=== PATIENT | male | born 1980 | race Caucasian/White ===

== ENCOUNTER 2024-12-06 10:41 | Outpatient (CLI) | payer BC, SELFPAY ==
--- NOTE | ~2024-12-06 | XR_ITS ---
CHEST RADIOGRAPH, PA AND LATERAL CLINICAL HISTORY: EXPOSURE TO MOLD 2 months ago, previous smoker . COMPARISON: None available TECHNIQUE: PA and lateral views of the chest. FINDINGS The cardiomediastinal silhouette is unremarkable. The lungs are clear. IMPRESSION: No focal infiltrate or effusion. Reviewed, dictated and finalized at location A.
== END 2024-12-06 10:42 | disposition home or self-care (01) ==
LOC: GOSHIMG 10:42
PROVIDERS: PCP Physician Assistant; Visit Provider Physician Assistant
DX: Z77.120 Contact with and (suspected) exposure to mold (toxic) (principal)
CPT/HCPCS: 71046

== ENCOUNTER 2024-12-22 08:42 | Observation (INO) | payer SELFPAY ==
--- NOTE | ~2024-12-22 | US_ITS ---
EXAMINATION: US scrotum doppler, 12/22/2024 9:10 CDT HISTORY: left testicle swelling Comparison: None Technique: Leon-scale and color Doppler images were obtained of the testes with spectral analysis to document arterial and venous flow. Findings: Right Testicle:Right testicle 4.6 x 2.1 x 2.8 cm, normal parenchyma, normal flow. Right Epidiymis:Unremarkable. Normal flow. Left Testicle: Increased flow noted to the left testicle is otherwise normal parenchyma. Left testicle measures 4.6 x 3.4 x 3.2 cm. Left Epidiymis: The left epididymis is enlarged with increased flow. Hydrocele: Small simple appearing hydrocele. Moderate simple-appearing left hydrocele. . Varicocele: None Scrotum: Unremarkable. No skin thickening. Impression: Left-sided epididymoorchitis Reviewed, dictated and finalized at location A. Impression: Left-sided epididymoorchitis
--- NOTE | ~2024-12-22 | CT_ITS ---
EXAMINATION: CT abdomen pelvis wo miles, 12/22/2024 9:20 CDT HISTORY: flank pain COMPARISON: No comparisons available. TECHNIQUE: CT scan of the abdomen and pelvis was performed without IV contrast. One or more of the following dose reduction techniques were used: automated exposure control, adjustment of the mA and/or kV according to patient size, use of iterative reconstruction technique. Unless otherwise stated, incidental findings do not require dedicated follow up imaging FINDINGS: CT abdomen: LUNG BASES: The lung bases are clear. The visualized portions of the heart and pericardium are unremarkable. LIVER: Severe hepatic steatosis. SPLEEN: Unremarkable, no splenomegaly. KIDNEYS: Right Kidney: Unremarkable. No calculi. No hydronephrosis. Left Kidney: Unremarkable. No calculi. No hydronephrosis ADRENAL GLANDS: Unremarkable. PANCREAS: No enlarged lymph nodes in the peripancreatic space the largest 2 x 1.5 cm. GALLBLADDER/BILIARY: Gallbladder not identified. STOMACH AND ESOPHAGUS: Visualized stomach and esophagus within normal limits. BOWEL/MESENTERY: Moderate fecal content. No colitis or diverticulitis. Appendix normal. Mesentery normal. No dilated small bowel loops. ADENOPATHY/RETROPERITONEUM: No lymphadenopathy. AORTA/VASCULATURE: Normal caliber aorta. FREE FLUID OR FREE AIR: No free fluid.. CT pelvis: SOLID ORGANS/REPRODUCTIVE: Unremarkable. BLADDER: Within normal limits. OSSEOUS STRUCTURES: No acute osseous abnormality.No suspicious lesions. OVERLYING SOFT TISSUES: Unremarkable. IMPRESSION: 1. No etiology identified to explain the patient's symptoms. Follow-up suggested if symptoms persist. Reviewed, dictated and finalized at location A. IMPRESSION: 1. No etiology identified to explain the patient's symptoms. Follow-up suggeste d if symptoms persist.
[2024-12-22 08:44] VITALS: BP 161/114; PULSE 92; RESP 20; TEMP 36.6; O2SAT 97
--- OUTSIDE RECORDS SUMMARY | 2024-12-22 08:44 | XMS_ITS | Clinical Summary ---
Author Organization [facility] Address [address] [place] [address] Care Team Providers Care Doormaker Name Role Phone Lacey Woodward MD Primary Care Provider [phone] [facility],non-owned Affiliates and Associated Physician Practices is amultiple site organization consisting of ambulatory clinics and hospital sitesin [place], [place], [place] and [place]. This disclosure is being madepursuant to the Care Everywhere program and may not contain all information available regarding this patient. Last updated 18.[facility] Allergies Active Allergy Reactions Criticality Noted Date Comments Penicillins 05/22/2011 Medications * Be aware that medications may not be up to date on this document. Alwaysverify current medications with the patient. oxyCODONE CR 12hr (OXYCONTIN) 10 MG tablet Take 10 mg by mouth every 12 hours. Active cyclobenzaprine (FLEXERIL) 10 MG tablet Take 10 mg by mouth 3 times daily as needed. Active diazepam (VALIUM) 5 MG tablet Take 5 mg by mouth 3 times daily as needed. Active hydrocodone-acet aminophen (NORCO) 5-325 MG tablet Take 1 Tab by mouth every 4 hours as needed for Pain. 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 Gender Identity Not on file Sexual Orientation Not on file Last Filed Vital Signs Vital Sign Reading Time Taken Comments Blood Pressure 103/55 05/22/2011 9:46 PM FISHER SCALLOP Pulse 66 05/22/2011 9:45 PM FISHER SCALLOP Temperature 36.8 C (98.3 F) 05/22/2011 9:45 PM FISHER SCALLOP Respiratory Rate 15 05/22/2011 9:45 PM FISHER SCALLOP Oxygen Saturation 98% 05/22/2011 9:47 PM FISHER SCALLOP Inhaled Oxygen Concentration - - Weight 108.9 kg (240 lb) 05/22/2011 7:55 PM FISHER SCALLOP Height 195.6 cm (6' 5) 05/22/2011 7:55 PM FISHER SCALLOP Body Mass Index 28.46 05/22/2011 7:55 PM FISHER SCALLOP Plan of Treatment Health Maintenance Due Date Last Done Comments LIPID TESTING 1980 HIV SCREENING 08/28/1995 HEPATITIS C SCREENING 08/23/1998 DTAP/TDAP/TD VACCINES (1 - Tdap) 08/28/1999 HEPATITIS B VACCINE (1 of 3 - 19+ 3-dose series) 08/28/1999 HPV VACCINE (1 - 3-dose SCDM series) 08/28/2007 COVID-19 VACCINE (1 - 2023-2 5 season) 2023 DEPRESSION SCREENING 04/25/2024 INFLUENZA VACCINE (#1) 2024 ZOSTER VACCINE (1 of 2) 2030 HIB VACCINE Aged Out No longer eligi ble based on patient's age to complete this topic MENINGOCOCCAL (Group B) VACC INE SHARED DECISION-MAKING Aged Out No longer eligibl e based on patient's age to complete this topic MENINGOCOCCAL GROUPS A/C/Y/W VACCINE Aged Out No longer eligible b ased on patient's age to complete this topic PNEUMOCOCCAL VACCINE Aged Out No long er eligible based on patient's age to complete this topic Care Teams Doormaker Relationship Specialty Start Date End Date Lacey Woodward MD [address] [place] [id number] PCP - General 05/22/11
--- OUTSIDE RECORDS SUMMARY | 2024-12-22 08:44 | XMS_ITS | Encounter Summary ---
Author Organization [facility] Address [address] [place] [address] Care Team Providers Care Oil Well Gun Perforator Operator Name Role Phone Eleazar Trotter MD Primary Care Provider [phone] Encounter Details Date Type Department Care Team (Late st Contact Info) Description 12/02/2024 Results Follow-Up 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
--- NOTE | 2024-12-22 08:51 | ED_ITS ---
HPI - General Adult General Chief complaint: Urogenital-Male Stated complaint: URO-MALE Time Seen by Provider: 12/22/24 08:43 History of Present Illness HPI narrative: [age] old male presenting to the emergency department for evaluation for left testicular swelling that he states has been ongoing for the past 2 weeks. Patient states he did have follow-up with [facility] and was started on an antibiotic but ultimately was told to stop the antibiotic because this was not a urinary tract infection. Patient reports while he was on the antibiotic he felt that his symptoms were improving. Patient reports that acutely last night he had worsening left testicular pain and does still have bilateral flank pain. Patient denies any prior history of discolored torsion, testicular surgeries or kidney stones. Patient does report some pain with urination. Patient is tearful upon arrival to the emergency department. Related Data Allergies Allergy/AdvReac Type Severity Reaction Status Date / Time Penicillins Allergy Unknown Verified 12/22/24 15:01 Review of Systems 2 Review of Systems: All systems reviewed & are unremarkable except as noted in HPI and below PMFSH Social History Social History (System 11/22/19 @ 09:13 by Yenny Rainey) Smoking status: Current every day smoker Tobacco type: cigarettes Second hand tobacco smoke exposure: Yes Alcohol intake: never Substance use: current Substance use type: marijuana Lack of Transportation: No Lack of Food: Never True Current Housing: I Have Housing Concerned About Future Housing: No Difficulty Paying Gas/Electric Bills: No Difficulty Paying for Meds: No Currently Unemployed: No Education: Associate Degree Difficulty w/ Childcare or Family Care: No Spiritual care concerns: No Exam 2 Narrative: APPEARANCE: Tearful affect HEAD: normocephalic, atraumatic. EYES: PERRLA/EOMI, conjunctivae clear. NOSE: Normal no drainage EARS:TMS clear with good light reflex. THROAT: Pharynx clear, no exudate. NECK: Supple. No adenopathy, no masses. RESPIRATORY: Airway patent, respirations nonlabored. Clear to auscultation bilaterally, no rales, rhonchi, wheezing. CARDIOVASCULAR: Regular rate and rhythm without murmurs rubs or gallops. ABDOMINAL: Bilateral CVA tenderness to palpation MUSCULOSKELETAL: Moves all extremities. Strength/ROM intact, No edema, No calf tenderness. NEURO: Alert. Cranial nerves II through XII intact. Grossly intact SKIN: Warm, dry. Normal Color Genital exam: Left testicular swelling with no tenderness to right testicle and mild tenderness to left testicle, left testicle as not high riding Course Vital Signs Vital signs: Vital Signs Temperature 97.8 F 12/22/24 08:44 Pulse Rate 92 12/22/24 08:44 Respiratory Rate 20 12/22/24 08:44 Blood Pressure 161/114 H 12/22/24 08:44 Pulse Oximetry 97 12/22/24 08:44 Oxygen Delivery Room Air 12/22/24 08:44 Temperature 97.4 F L 12/22/24 14:30 Pulse Rate 77 12/22/24 14:30 Respiratory Rate 18 12/22/24 14:30 Blood Pressure 135/81 12/22/24 14:30 Pulse Oximetry 98 12/22/24 14:30 Oxygen Delivery Room Air 12/22/24 15:11 Medical Decision Making MDM Narrative Medical decision making narrative: 44-year-old male present to the emergency department for evaluation for left flank pain and left testicular pain and swelling. Patient is afebrile but does have a leukocytosis of 29.4 hemoglobin of 15.1. No significant acute abnormalities on the patient's CMP and UA was positive for leukocyte esterase with 3-5 red cells and 6-10 white blood cells. Ultrasound does show evidence epididymo-orchitis but CT scan showed no acute findings. Patient was negative for gonorrhea and chlamydia. Patient was treated with a dose of IM Rocephin and attempted to treat the patient with doxycycline but he did not tolerate the doxy IV so he was switched to Levaquin. Urology was consulted and was okay with the plan to continue the Levaquin. Patient was updated the results of the workup plan for admission. All questions are addressed. Case was accepted by the hospitalist. Patient was well-appearing at time of admission. Differential Diagnosis Differential Diagnosis: Kidney stone, ureteral calculi, urinary tract infection, gonorrhea, chlamydia, testicular torsion, epididymitis, epididymal orchitis Vital Signs Vital Signs: Vital Signs Temperature 97.8 F 12/22/24 08:44 Pulse Rate 92 12/22/24 08:44 Respiratory Rate 20 12/22/24 08:44 Blood Pressure 161/114 H 12/22/24 08:44 Pulse Oximetry 97 12/22/24 08:44 Oxygen Delivery Room Air 12/22/24 08:44 Temperature 97.4 F L 12/22/24 14:30 Pulse Rate 77 12/22/24 14:30 Respiratory Rate 18 12/22/24 14:30 Blood Pressure 135/81 12/22/24 14:30 Pulse Oximetry 98 12/22/24 14:30 Oxygen Delivery Room Air 12/22/24 15:11 Lab Data Lab results reviewed: Yes I reviewed the patient's lab results. 12/22/24 09:06 12/22/24 09:06 Labs: Lab Results 12/22/24 Range/Units 09:06 WBC 29.4 H (4.5-10.0) K/mm3 RBC 4.96 (4.6-6.20) M/mm3 Hgb 15.1 (14.0-18.0) g/dL Hct 45.2 (42.0-52.0) % MCV 91.1 (80-100) fl MCH 30.4 (26-34) pg MCHC 33.4 (32-36) g/dl RDW 12.7 (11.5-14.5) % Plt Count 231 (150-375) k/mm3 MPV 9.7 (7.4-10.4) fl Immature Gran % (Auto) Not Reportable Neut % (Auto) Not Reportable Lymph % (Auto) Not Reportable [place] % (Auto) Not Reportable Eos % (Auto) Not Reportable Baso % (Auto) Not Reportable Lymph # (Auto) Not Reportable [place] # (Auto) Not Reportable Eos # (Auto) Not Reportable Baso # (Auto) Not Reportable Abs Immat Gran (auto) Not Reportable Absolute Neuts (auto) Not Reportable Absolute Nucleated RBC Not Reportable Total Counted 100 Neutrophils % (Manual) 82 H (46-73) % Band Neutrophils % 3 (0-6) % Lymphocytes % (Manual) 6.0 L (18-44) % Monocytes % (Manual) 8 (3-9) % Eosinophils % (Manual) 1 (0-4) % Nucleated RBC % Not Reportable Abs Neuts (Manual) 24.99 H (1.3-6.7) K/mm3 Abs Lymphs (Manual) 1.76 (1.1-4.5) K/mm3 Abs Monocytes (Manual) 2.35 H (0.1-0.90) K/mm3 Absolute Eos (Manual) 0.29 (0.02-0.50) K/mm3 Platelet Estimate Adequate (Adequate) Schistocytes None seen Sodium 135 L (137-145) mmol/L Potassium 4.0 (3.4-5.0) mmol/L Chloride 101 (98-107) mmol/L Carbon Dioxide 26 (22-30) mmol/L Anion Gap 8 (4-12) mmol/L BUN 12 (9-20) mg/dL Creatinine 0.77 (0.7-1.3) mg/dL Estim Creat Clear Calc 169 ml/min Estimated GFR > 60 (59 - ) Glucose 150 H (65-110) mg/dL Calcium 9.3 (8.4-10.2) mg/dL Total Bilirubin 1.0 (0.2-1.3) mg/dL AST 42 (17-59) U/L ALT 37 (6-50) U/L Alkaline Phosphatase 95 (38-126) U/L Total Protein 7.1 (6.3-8.2) g/dL Albumin 4.1 (3.5-5.1) g/dL Urine Color Yellow (Yellow) Urine Appearance Cloudy H (Clear) Urine pH 6.0 (5.0-9.0) Ur Specific [place] 1.018 (1.001-1.035) Urine Protein Trace (Negative) mg/dL Urine Glucose (UA) Negative (Negative) mg/dL Urine Ketones Negative (Negative) mg/dL Ur Blood (Man) Negative (Negative) Urine Nitrate Negative (Negative) Urine Bilirubin Negative (Negative) Urine Urobilinogen 1.0 (<2.0) mg/dL Leukocyte Esterase Rfl 1+ H (Negative) FLORA/UL Urine RBC 3-5 H (0-2) /hpf Urine WBC 6-10 H (0-3) /hpf Ur Squamous Epith Cells Occasional (Few) /hpf Urine Bacteria None seen /hpf Urine Casts 0-2 C. trachomatis (PCR) Not detected (NOT DETECTE) N. gonorrhoeae (PCR) Not detected (NOT DETECTE) Imaging Data Radiologist's impression: Impressions Scrotum Ultrasound 12/22/24 11:38 Impression: Left-sided epididymoorchitis Abdomen/Pelvis CT 12/22/24 12:10 IMPRESSION: 1. No etiology identified to explain the patient's symptoms. Follow-up suggested if symptoms persist. Discharge Plan Discharge Clinical Impression: Epididymo-orchitis Patient Disposition: Still a Patient Condition: Stable
[2024-12-22 09:11] LABS: Hematocrit 45.2 % (42.0-52.0); Hemoglobin 15.1 g/dL (14.0-18.0); Mean Corpuscular HGB Conc 33.4 g/dl (32-36); Mean Corpuscular Hemoglobin 30.4 pg (26-34); Mean Corpuscular Volume 91.1 fl (80-100); Platelet Count Result 231 k/mm3 (150-375); Red Blood Count 4.96 M/mm3 (4.6-6.20); White Blood Count 29.4 K/mm3 (4.5-10.0)
[2024-12-22] MEDS: LACTATED RINGERS 1,000 ML 999 ML IV CONT (09:13)
--- OUTSIDE RECORDS SUMMARY | 2024-12-22 09:14 | XMS_ITS | Encounter Summary ---
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
--- OUTSIDE RECORDS SUMMARY | 2024-12-22 09:14 | XMS_ITS | Clinical Summary ---
Author Organization [facility] Address [address] [place] [address] Care Team Providers Care Vibration Analyst Name Role Phone Lacey Woodward MD Primary Care Provider [phone] Source Comments [facility],non-owned Affiliates and Associated Physician Practices is amultiple site organization consisting of ambulatory clinics and hospital sitesin [place], [place], [place] and [place]. This disclosure is being madepursuant to the Care Everywhere program and may not contain all information available regarding this patient. 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 Gender Identity Not on file Sexual Orientation Not on file Last Filed Vital Signs Vital Sign Reading Time Taken Comments Blood Pressure 103/55 05/22/2011 9:46 PM SHEET METAL ASSEMBLER Pulse 66 05/22/2011 9:45 PM SHEET METAL ASSEMBLER Temperature 36.8 C (98.3 F) 05/22/2011 9:45 PM SHEET METAL ASSEMBLER Respiratory Rate 15 05/22/2011 9:45 PM SHEET METAL ASSEMBLER Oxygen Saturation 98% 05/22/2011 9:47 PM SHEET METAL ASSEMBLER Inhaled Oxygen Concentration - - Weight 108.9 kg (240 lb) 05/22/2011 7:55 PM SHEET METAL ASSEMBLER Height 195.6 cm (6' 5) 05/22/2011 7:55 PM SHEET METAL ASSEMBLER Body Mass Index 28.46 05/22/2011 7:55 PM SHEET METAL ASSEMBLER Plan of Treatment Health Maintenance Due Date [...] age to complete this topic Care Teams Vibration Analyst Relationship Specialty Start Date End Date Lacey Woodward MD [address] [place] [phone] PCP - General 05/22/11
[2024-12-22 09:15] LABS: Add Urine Microscopic? YES; Appearance Urine Cloudy (Clear); Glucose Urine UA Negative (Negative); Leukocyte Esterase Ur 1+ LEU/UL (Negative); Nitrate Urine Negative (Negative); Non Pathogenic Casts 0-2; Specific Grav Ur 1.018 (1.001-1.035)
[2024-12-22] MEDS: HYDROcodone/acetaminophen (*CRX) 7.5-325 MG TABLET 1 TAB PO (09:16)
--- NOTE | 2024-12-22 09:23 | PC.NURSE ---
called lab to add on GCCHLAMPCR to urine sent down.
[2024-12-22 09:34] LABS: Alanine Aminotransferase 37 U/L (6-50); Albumin Level 4.1 g/dL (3.5-5.1); Alkaline Phosphatase 95 U/L (38-126); Anion Gap 8 mmol/L (4-12); Aspartate Amino Transferase 42 U/L (17-59); Bilirubin,Total 1.0 mg/dL (0.2-1.3); Blood Urea Nitrogen 12 mg/dL (9-20); Calcium 9.3 mg/dL (8.4-10.2); Carbon Dioxide 26 mmol/L (22-30); Chloride 101 mmol/L (98-107); Estimated CRCL calculation 169 ml/min; Estimated Glomerular Filt Rate > 60; Glucose 150 mg/dL (65-110); Potassium 4.0 mmol/L (3.4-5.0); Sodium 135 mmol/L (137-145); Total Protein 7.1 g/dL (6.3-8.2)
[2024-12-22 09:36] LABS: Band Neutrophils Percent 3 % (0-6); Eosinophils Absolute Manual 0.29 K/mm3 (0.02-0.50); Eosinophils Percent Manual 1 % (0-4); Lymphocytes Absolute Manual 1.76 K/mm3 (1.1-4.5); Lymphocytes Percent Manual 6.0 % (18-44); Monocytes Absolute Manual 2.35 K/mm3 (0.1-0.90); Monocytes Percent Manual 8 % (3-9); Neutrophils Absolute Manual 24.99 K/mm3 (1.3-6.7); Neutrophils Percent Manual 82 % (46-73); Schistocytes None Seen; Total Cells Counted 100
[2024-12-22 10:21] VITALS: BP 132/86; PULSE 75; RESP 20; O2SAT 98
[2024-12-22] MEDS: cefTRIAXone 1 GM VIAL 0.5 GM IM (12:15)
[2024-12-22] MEDS: DOXYCYCLINE IV 100 MG in SODIUM CHLORIDE 0.9% IV 100 ML IVPB (12:16)
[2024-12-22] MEDS: LIDOCAINE 1% LOCAL INJ 10 ML VIAL (12:17)
--- NOTE | 2024-12-22 12:36 | PC.NURSE ---
Pt c/o pain to IV site with doxycycline IV administration. MD made aware. Order discontinued and IV stopped.
[2024-12-22] MEDS: levoFLOXacin 750 MG/D5W 150 ML 750 MG/150 ML BAG 100 MG IVPB (12:52)
[2024-12-22 14:27] VITALS: BMI 38.6
[2024-12-22 14:30] VITALS: BP 135/81; PULSE 77; RESP 18; TEMP 36.3; O2SAT 98
[2024-12-22] MEDS: HYDROcodone/acetaminophen (*CRX) 5-325 MG TABLET 1 TAB PO (14:42)
[2024-12-22] MEDS: ONDANSETRON INJ 4 MG/2 ML VIAL IV PUSH (14:42)
[2024-12-22] MEDS: NICOTINE (*PBKC) 21 MG PATCH 1 PATCH TRANSDERM (14:42)
[2024-12-22] MEDS: SODIUM CHLORIDE 0.9% IV 1,000 ML 100 ML IV CONT (14:43)
--- NOTE | 2024-12-22 15:11 | ADMGEN ---
This patient, Jonathan Stoner, was admitted to [facility] Surg Room 313-01. Patient/family oriented to hospital policies and general routines including ID bracelet, bed and alarms, visiting hours, pain management, procedures, bathroom and other care routines, personal items, smoking policy, room service/diet, and visiting hours. Information on how to activate the Rapid Response Team has been discussed. Patient/Family are encouraged to report perceived risks to care and to ask questions if they do not understand what they are told or what they should do. received report from gloria.
--- NOTE | 2024-12-22 15:37 | P.HP_ITS ---
H&P: HPI History of Present Illness Date/Time: 12/22/24 15:37 Chief Complaint: Scrotal Pain Narrative: 44 Year old male presents the hospital with scrotal pain. Patient has been complaining about this for the last 2 weeks. He was seen at [facility] and was treated for a urinary tract infection with antibiotics however he was told he could stop taking antibiotics causes culture was negative. He states that while he was on antibiotics he felt that his symptoms improved. However last night he had acute left testicular pain with some flank pain. Due to the pain patient presented back to the emergency room. Lab work in the ED shows leukocytosis at 29.4, sodium of 135, glucose of 150, UA is cloudy with 1+ leukocyte esterase 3-5 rbc's and 6-10 wbc's. Trichomonas and gonorrhea were negative. Scrotal ultrasound show Left-sided epididymoorchitis. CT of abdomen pelvis shows no acute findings however there is Severe hepatic steatosis. Urology was consulted and recommended inpatient IV antibiotics. Review of Systems Review of Systems: 12 systems were reviewed and are negativ e except for as per HPI. [facility] Social History Social History (System 11/22/19 @ 09:13 by Yenny Rainey) Smoking status: Current every day smoker Tobacco type: cigarettes Second hand tobacco smoke exposure: Yes Alcohol intake: never Substance use: current Substance use type: marijuana Lack of Transportation: No Lack of Food: Never True Current Housing: I Have Housing Concerned About Future Housing: No Difficulty Paying Gas/Electric Bills: No Difficulty Paying for Meds: No Currently Unemployed: No Education: Associate Degree Difficulty w/ Childcare or Family Care: No Spiritual care concerns: No Meds Home Medications and Allergies Home Medications ?Medication ?Instructions ?Recorded ?Confirmed ?Type losartan 50 mg tablet 50 mg PO QAM 12/22/24 History Allergies Allergy/AdvReac Type Severity Reaction Status Date / Time Penicillins Allergy Unknown Verified 12/22/24 15:01 Vital Signs Vital Signs - 24 hr 12/22/24 08:44 12/22/24 10:21 12/22/24 14:30 Temperature 97.8 F 97.4 F L Pulse Rate 92 75 77 Respiratory Rate 20 20 18 Blood Pressure 161/114 H 132/86 135/81 Pulse Oximetry 97 98 98 Oxygen Delivery Room Air 12/22/24 15:11 Temperature Pulse Rate Respiratory Rate Blood Pressure Pulse Oximetry Oxygen Delivery Room Air Exam Narrative: General: well appearing, appears stated age. HEENT: normocephalic, atraumatic. Mucous membranes moist. EOMI, PERRLA, bilateral sclera anicteric, no conjunctival injection. Neck supple without JVD, lymphadenopathy, or bruit. Respiratory: clear to ascultation bilaterally. No rales/rhonic/wheezes. Cardiovascular: Regular rate and rhythm, normal S1-S2 upon ascultation. No murmurs, rubs, or clicks. PMI is nondisplaced, capillary refill less than 3 second. Abdomen: Soft, round, no pulsatile masses, nondistended and nontender. No rebound, no guarding. No CVA tenderness, no hepatosplenomegaly. Bowel sounds present to all four quadrants. No high pitch or tinkling sounds, resonant to percussion. Extremities: No cyanosis, clubbing, or edema present. Pulses are palpable 2/2. Active ROM to all four extremities. Neuro: Alert and orientated x 4. PERRLA. Cranial nerves 2-12 intact without focal deficit. Skin: Warm, dry, and intact, without rash, erythema, or lesion. Psych: pleasant, cooperative, normal speech, normal affect, no hallucinations, no dysarthia H&P: Results Labs Labs: Short CBC 12/22/24 Range/Units 09:06 WBC 29.4 H (4.5-10.0) K/mm3 Hgb 15.1 (14.0-18.0) g/dL Hct 45.2 (42.0-52.0) % Plt Count 231 (150-375) k/mm3 BMP 12/22/24 09:06 Sodium 135 L Potassium 4.0 Chloride 101 Carbon Dioxide 26 BUN 12 Creatinine 0.77 Glucose 150 H Calcium 9.3 Liver Function 12/22/24 Range/Units 09:06 Total Bilirubin 1.0 (0.2-1.3) mg/dL AST 42 (17-59) U/L ALT 37 (6-50) U/L Alkaline Phosphatase 95 (38-126) U/L Albumin 4.1 (3.5-5.1) g/dL Urine 12/22/24 Range/Units 09:06 Urine Color Yellow (Yellow) Urine Appearance Cloudy H (Clear) Urine pH 6.0 (5.0-9.0) Ur Specific [place] 1.018 (1.001-1.035) Urine Protein Trace (Negative) mg/dL Urine Glucose (UA) Negative (Negative) mg/dL Assessment and Plan Assessment and plan (1) Epididymo-orchitis: Code(s): N45.3 - Epididymo-orchitis Status: Acute Assessment and Plan: Urology consulted Urinary culture pending IV levofloxacin IVF Dilaudid and Toradol for pain control (2) Hyperglycemia: Code(s): R73.9 - Hyperglycemia, unspecified Status: Acute Assessment and Plan: A1c 6.3 Diabetic diet SSI environmental educator (3) Hepatic steatosis: Code(s): K76.0 - Fatty (change of) liver, not elsewhere classified Status: Acute Assessment and Plan: Liver enzymes within normal limits Patient is aware of this fatty liver and quit drinking about 9 years ago Quality VTE Prophylaxis VTE prophylaxis: mechanical ordered If No VTE Prophylaxis Answer both mechanical and pharmacologic: Reason no pharmacologic proph: low risk/not indicated Hospitalist MIPS Advance Care Plan I have confirmed that the patient's Advanced Care Plan is present, code status is documented, or surrogate decision maker is listed in patient medical record.: Yes Medication Reconciliation I have utilized all available resources to obtain, update and review the patients current medications (includes all prescriptions, OTC, herbals, cannabis, and nutritional supplements).: Yes
[2024-12-22] MEDS: HYDROmorphone HCL INJ (*CRX) 1 MG/ML SYR 0.5 MG IV PUSH (16:00)
[2024-12-22] MEDS: DOCUSATE SODIUM 100 MG CAPSULE PO (17:15)
[2024-12-22] MEDS: HYDROmorphone HCL INJ (*CRX) 1 MG/ML SYR IV PUSH ×3 (17:38→23:21)
[2024-12-22] MEDS: KETOROLAC 15 MG/ML VIAL (*BKC) IV PUSH ×2 (17:39→23:21)
[2024-12-22 19:36] LABS: Hemoglobin A1C 6.3 % (<5.7)
[2024-12-22 20:00] VITALS: PULSE 72; RESP 16; O2SAT 96
[2024-12-22 20:52] VITALS: BP 133/75; PULSE 72; RESP 16; TEMP 36.7; O2SAT 96
[2024-12-23] MEDS: SODIUM CHLORIDE 0.9% IV 1,000 ML 100 ML IV CONT ×3 (00:58→23:25)
[2024-12-23] MEDS: HYDROmorphone HCL INJ (*CRX) 1 MG/ML SYR IV PUSH ×3 (04:52→15:21)
[2024-12-23 05:40] VITALS: BP 111/73; PULSE 66; RESP 16; TEMP 36.7; O2SAT 96
[2024-12-23 06:02] LABS: Hematocrit 41.4 % (42.0-52.0); Hemoglobin 13.7 g/dL (14.0-18.0); Mean Corpuscular HGB Conc 33.1 g/dl (32-36); Mean Corpuscular Hemoglobin 32.0 pg (26-34); Mean Corpuscular Volume 96.7 fl (80-100); Platelet Count Result 200 k/mm3 (150-375); Red Blood Count 4.28 M/mm3 (4.6-6.20); White Blood Count 26.7 K/mm3 (4.5-10.0)
[2024-12-23] MEDS: KETOROLAC 15 MG/ML VIAL (*BKC) IV PUSH ×4 (06:15→23:24)
[2024-12-23 07:00] LABS: Total Cells Counted 100
[2024-12-23 07:01] LABS: Band Neutrophils Percent 0 % (0-6); Eosinophils Absolute Manual 0.26 K/mm3 (0.02-0.50); Eosinophils Percent Manual 1 % (0-4); Lymphocytes Absolute Manual 2.40 K/mm3 (1.1-4.5); Lymphocytes Percent Manual 9 % (18-44); Monocytes Absolute Manual 1.60 K/mm3 (0.1-0.90); Monocytes Percent Manual 6 % (3-9); Neutrophils Absolute Manual 22.42 K/mm3 (1.3-6.7); Neutrophils Percent Manual 84 % (46-73); Schistocytes None Seen
[2024-12-23] MEDS: HYDROcodone/acetaminophen (*CRX) 5-325 MG TABLET 1 TAB PO ×4 (08:22→22:08)
[2024-12-23] MEDS: DOCUSATE SODIUM 100 MG CAPSULE PO ×2 (08:22→17:51)
[2024-12-23] MEDS: LOSARTAN POTASSIUM 50 MG TABLET PO (08:23)
[2024-12-23] MEDS: NICOTINE (*PBKC) 21 MG PATCH 1 PATCH TRANSDERM (08:24)
[2024-12-23 08:27] LABS: Anion Gap 8 mmol/L (4-12); Blood Urea Nitrogen 14 mg/dL (9-20); Calcium 8.4 mg/dL (8.4-10.2); Carbon Dioxide 26 mmol/L (22-30); Chloride 102 mmol/L (98-107); Estimated CRCL calculation 161 ml/min; Estimated Glomerular Filt Rate > 60; Glucose 107 mg/dL (65-110); Potassium 3.5 mmol/L (3.4-5.0); Sodium 136 mmol/L (137-145)
--- NOTE | 2024-12-23 08:47 | P.PNIM_ITS ---
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 Patient has been complaining about this for the last 2 weeks. He was seen at [facility] and was treated for a urinary tract infection with antibiotics however he was told he could stop taking antibiotics causes culture was negative. He states that while he was on antibiotics he felt that his symptoms improved. However last night he had acute left testicular pain with some flank pain. 12/23/2024 Patient sitting comfortably in bed at time of exam. Remains afebrile. WBC down 29.4 -> 26.7. Seen by urology - agree with diagnosis of L epididymitis - recommend extending admission for atleast 1 more day with further Abx coverage. Pt amenable to this plan. Review of Systems Review of Systems: 12 systems were reviewed and are negativ e except for as per HPI. Exam Narrative: General: well appearing, appears stated age. HEENT: normocephalic, atraumatic. Mucous membranes moist. EOMI, PERRLA, bila teral sclera anicteric, no conjunctival injection. Neck supple without JVD, lymphadenopathy, or bruit. Respiratory: clear to ascultation bilaterally. No rales/rhonic/wheezes. Cardiovascular: Regular rate and rhythm, normal S1-S2 upon ascultation. No murmurs, rubs, or clicks. PMI is nondisplaced, capillary refill less than 3 second. Abdomen: Soft, round, no pulsatile masses, nondistended and nontender. No rebound, no guarding. No CVA tenderness, no hepatosplenomegaly. Bowel sounds present to all four quadrants. No high pitch or tinkling sounds, resonant to percussion. Extremities: No cyanosis, clubbing, or edema present. Pulses are palpable 2/2. Active ROM to all four extremities. Neuro: Alert and orientated x 4. PERRLA. Cranial nerves 2-12 intact without focal deficit. Skin: Warm, dry, and intact, without rash, erythema, or lesion. Psych: pleasant, cooperative, normal speech, normal affect, no hallucinations, no dysarthia Objective Data Vital Signs Vital Signs: Vital Signs - 24 hr 12/22/24 10:21 12/22/24 14:30 12/22/24 15:11 Temperature 97.4 F L Pulse Rate 75 77 Respiratory Rate 20 18 Blood Pressure 132/86 135/81 Pulse Oximetry 98 98 Oxygen Delivery Room Air 12/22/24 20:00 12/22/24 20:52 12/23/24 05:40 Temperature 98.1 F 98.1 F Pulse Rate 72 72 66 Respiratory Rate 16 16 16 Blood Pressure 133/75 111/73 Pulse Oximetry 96 96 96 Oxygen Delivery Room Air Intake/Output Intake/Output: Intake & Output 12/20/24 12/21/24 12/22/24 12/23/24 23:59 23:59 23:59 23:59 Intake Total 1241 1550 Balance 1241 1550 Meds/Results Medications: Active Medications Generic Name Dose Route Start Last Admin Trade Name Freq PRN Reason Stop Dose Admin Acetaminophen 650 mg 12/22/24 12:48 Acetaminophen 325 Mg Tablet PO Q4H PRN Mild Pain (1-3) or Fever Hydrocodone Bitart/Acetaminophen 1 tab 12/22/24 12:48 12/23/24 08:22 Hydrocodone/Acetaminophen (*Crx) 5-325 Mg Tablet PO 1 tab Q4H PRN Administration Moderate Pain (4-6) Dextrose 12.5 gm 12/22/24 21:20 Dextrose 50% 25 Gm/50 Ml Syringe IV PUSH PRN PRN Hypoglycemia Protocol Docusate Sodium 100 mg 12/22/24 17:00 12/23/24 08:22 Docusate Sodium 100 Mg Capsule PO 100 mg BID ROSIO Administration Glucagon 1 mg 12/22/24 21:20 Glucagon For Inj 1 Mg Vial IM PRN PRN Hypoglycemia Protocol Glucose 15 gm 12/22/24 21:20 Glucose Oral Gel 15 Gm Of Glucse In 37.5 Gm Tube PO PRN PRN Hypoglycemia Protocol Hydromorphone HCl 1 mg 12/22/24 17:17 12/23/24 04:52 Hydromorphone Hcl Inj (*Crx) 1 Mg/Ml Syr IV PUSH 1 mg Q2HR PRN Administration BREAKTHROUGH PAIN Sodium Chloride 1,000 mls @ 100 mls/hr 12/22/24 12:50 12/23/24 00:58 Normal Saline Iv IV CONT 100 mls/hr .Q10H ROSIO Administration Levofloxacin/Dextrose 750 mg in 150 mls @ 100 mls/hr 12/23/24 13:00 Levaquin 750 Mg/D5w 150 Ml IVPB Q24H ROSIO Dextrose 1,000 mls @ 100 mls/hr 12/22/24 21:20 Dextrose 5% 1,000 Ml IVPB PRN PRN Hypoglycemia Protocol Insulin Aspart 2 - 5 units 12/23/24 08:00 12/23/24 07:48 Insulin Aspart (*Bkc) 100 Units/Ml SUB-Q Not Given TIDWM [facility] Protocol Insulin Aspart 1 - 2 units 12/23/24 21:00 Insulin Aspart (*Bkc) 100 Units/Ml SUB-Q HS [facility] Protocol Ketorolac Tromethamine 15 mg 12/22/24 18:00 12/23/24 06:15 Ketorolac 15 Mg/Ml Vial (*Bkc) IV PUSH 15 mg Q6H ROSIO Administration Losartan Potassium 50 mg 12/23/24 09:00 12/23/24 08:23 Losartan Potassium 50 Mg Tablet PO 50 mg QAM ROSIO Administration Nicotine 1 patch 12/22/24 14:25 12/23/24 08:24 Nicotine (*Pbkc) 21 Mg Patch TRANSDERM 1 patch DAILY ROSIO Administration Ondansetron HCl 4 mg 12/22/24 14:19 12/22/24 14:42 Ondansetron Inj 4 Mg/2 Ml Vial IV PUSH 4 mg Q6H PRN Administration Nausea And Vomiting Radiology Results: ITS Impressions Scrotum Ultrasound 12/22/24 11:38 Impression: Left-sided epididymoorchitis Abdomen/Pelvis CT 12/22/24 12:10 IMPRESSION: 1. No etiology identified to explain the patient's symptoms. Follow-up suggested if symptoms persist. Labs Labs: Laboratory Results - last 24 hr 12/22/24 12/22/24 12/23/24 09:05 09:06 05:32 WBC 29.4 H 26.7 H RBC 4.96 4.28 L Hgb 15.1 13.7 L Hct 45.2 41.4 L MCV 91.1 96.7 D MCH 30.4 32.0 D MCHC 33.4 33.1 RDW 12.7 12.9 Plt Count 231 200 MPV 9.7 10.3 Immature Gran % (Auto) Not Reportable Not Reportable Neut % (Auto) Not Reportable Not Reportable Lymph % (Auto) Not Reportable Not Reportable Holt % (Auto) Not Reportable Not Reportable Eos % (Auto) Not Reportable Not Reportable Baso % (Auto) Not Reportable Not Reportable Lymph # (Auto) Not Reportable Not Reportable Holt # (Auto) Not Reportable Not Reportable Eos # (Auto) Not Reportable Not Reportable Baso # (Auto) Not Reportable Not Reportable Abs Immat Gran (auto) Not Reportable Not Reportable Absolute Neuts (auto) Not Reportable Not Reportable Absolute Nucleated RBC Not Reportable Not Reportable Total Counted 100 100 Neutrophils % (Manual) 82 H 84 H Band Neutrophils % 3 0 Lymphocytes % (Manual) 6.0 L 9 L Monocytes % (Manual) 8 6 Eosinophils % (Manual) 1 1 Nucleated RBC % Not Reportable Not Reportable Abs Neuts (Manual) 24.99 H 22.42 H Abs Lymphs (Manual) 1.76 2.40 Abs Monocytes (Manual) 2.35 H 1.60 H Absolute Eos (Manual) 0.29 0.26 Platelet Estimate Adequate Adequate Schistocytes None seen None seen Sodium 135 L Potassium 4.0 Chloride 101 Carbon Dioxide 26 Anion Gap 8 BUN 12 Creatinine 0.77 Estim Creat Clear Calc 169 Estimated GFR > 60 Glucose 150 H POC Capillary Glucose Hemoglobin A1c 6.3 H Calcium 9.3 Total Bilirubin 1.0 AST 42 ALT 37 Alkaline Phosphatase 95 Total Protein 7.1 Albumin 4.1 Urine Color Yellow Urine Appearance Cloudy H Urine pH 6.0 Ur Specific [place] 1.018 Urine Protein Trace Urine Glucose (UA) Negative Urine Ketones Negative Ur Blood (Man) Negative Urine Nitrate Negative Urine Bilirubin Negative Urine Urobilinogen 1.0 Leukocyte Esterase Rfl 1+ H Urine RBC 3-5 H Urine WBC 6-10 H Ur Squamous Epith Cells Occasional Urine Bacteria None seen Urine Casts 0-2 C. trachomatis (PCR) Not detected N. gonorrhoeae (PCR) Not detected 12/23/24 12/23/24 07:25 07:31 WBC RBC Hgb Hct MCV MCH MCHC RDW Plt Count MPV Immature Gran % (Auto) Neut % (Auto) Lymph % (Auto) Holt % (Auto) Eos % (Auto) Baso % (Auto) Lymph # (Auto) Holt # (Auto) Eos # (Auto) Baso # (Auto) Abs Immat Gran (auto) Absolute Neuts (auto) Absolute Nucleated RBC Total Counted Neutrophils % (Manual) Band Neutrophils % Lymphocytes % (Manual) Monocytes % (Manual) Eosinophils % (Manual) Nucleated RBC % Abs Neuts (Manual) Abs Lymphs (Manual) Abs Monocytes (Manual) Absolute Eos (Manual) Platelet Estimate Schistocytes Sodium 136 L Potassium 3.5 Chloride 102 Carbon Dioxide 26 Anion Gap 8 BUN 14 Creatinine 0.81 Estim Creat Clear Calc 161 Estimated GFR > 60 Glucose 107 POC Capillary Glucose 115 H Hemoglobin A1c Calcium 8.4 Total Bilirubin AST ALT Alkaline Phosphatase Total Protein Albumin Urine Color Urine Appearance Urine pH Ur Specific [place] Urine Protein Urine Glucose (UA) Urine Ketones Ur Blood (Man) Urine Nitrate Urine Bilirubin Urine Urobilinogen Leukocyte Esterase Rfl Urine RBC Urine WBC Ur Squamous Epith Cells Urine Bacteria Urine Casts C. trachomatis (PCR) N. gonorrhoeae (PCR) Quality VTE Prophylaxis VTE prophylaxis: mechanical ordered
[2024-12-23 08:49] VITALS: O2SAT 91
--- NOTE | 2024-12-23 09:55 | P.CONUR_ITS ---
Assessment and Plan Assessment and plan (1) Left epididymitis: Code(s): N45.1 - Epididymitis Status: Acute Assessment and Plan: * Presentation,exam and scrotal u/s c/w left epididymitis * I expained to him typical, protracted resolution of epididymitis. * I'd suggest extending admission at least one more day, until we see improvement in leukocytosis. Urology Consult Note HPI Date Seen: 12/23/24 Requesting Physician: Jonathan Garrison MD Primary Care Provider: Bina Clemens, PA-C Consult Narrative Narrative: Jonathan Stoner is a 44 year old male with 2 week history of left scrotal swelling and pain that acutely worsened 48-hours ago. He denies fever/chills or significant voiding symptoms. Review of Systems 2 Review of Systems: All systems reviewed & are unremarkable except as noted in HPI and below PMFSH Social History Social History (System 11/22/19 @ 09:13 by Yenny Rainey) Smoking status: Current every day smoker Tobacco type: cigarettes Second hand tobacco smoke exposure: Yes Alcohol intake: never Substance use: current Substance use type: marijuana Lack of Transportation: No Lack of Food: Never True Current Housing: I Have Housing Concerned About Future Housing: No Difficulty Paying Gas/Electric Bills: No Difficulty Paying for Meds: No Currently Unemployed: No Education: Associate Degree Difficulty w/ Childcare or Family Care: No Spiritual care concerns: No Meds Home Medications and Allergies Home Medications ?Medication ?Instructions ?Recorded ?Confirmed ?Type losartan 50 mg tablet 50 mg PO QAM 12/22/24 History Allergies Allergy/AdvReac Type Severity Reaction Status Date / Time Penicillins Allergy Unknown Verified 12/22/24 15:01 Vital Signs Vital Signs - 24 hr 12/22/24 10:21 12/22/24 14:30 12/22/24 15:11 Temperature 97.4 F L Pulse Rate 75 77 Respiratory Rate 20 18 Blood Pressure 132/86 135/81 Pulse Oximetry 98 98 Oxygen Delivery Room Air 12/22/24 20:00 12/22/24 20:52 12/23/24 05:40 Temperature 98.1 F 98.1 F Pulse Rate 72 72 66 Respiratory Rate 16 16 16 Blood Pressure 133/75 111/73 Pulse Oximetry 96 96 96 Oxygen Delivery Room Air Exam 2 Const: General: no acute distress Resp: Effort & Inspection: normal respiratory effort GI: Inspection: non-distended GI Palp: No abdominal tenderness and No Guarding due to palpation present (GI) Auscultation: normal bowel sounds : Scrotum: scrotal swelling (mild-moderate) on the left and other (moderate left epididymal induration/tenderness) Results Labs 12/23/24 05:32 12/23/24 07:31 Labs: Short CBC 12/23/24 Range/Units 05:32 WBC 26.7 H (4.5-10.0) K/mm3 Hgb 13.7 L (14.0-18.0) g/dL Hct 41.4 L (42.0-52.0) % Plt Count 200 (150-375) k/mm3 BMP 12/23/24 07:31 Sodium 136 L Potassium 3.5 Chloride 102 Carbon Dioxide 26 BUN 14 Creatinine 0.81 Glucose 107 Calcium 8.4
[2024-12-23] MEDS: levoFLOXacin 750 MG/D5W 150 ML 750 MG/150 ML BAG 100 MG IVPB (12:30)
[2024-12-23 14:00] VITALS: BP 133/69; PULSE 58; RESP 18; TEMP 36.6; O2SAT 98
[2024-12-23 19:57] VITALS: BP 132/78; PULSE 73; RESP 16; TEMP 37.6; O2SAT 96
[2024-12-24] MEDS: HYDROcodone/acetaminophen (*CRX) 5-325 MG TABLET 1 TAB PO ×2 (02:10→06:08)
[2024-12-24 04:20] VITALS: BP 107/64; PULSE 84; RESP 18; TEMP 36.8; O2SAT 93
[2024-12-24] MEDS: KETOROLAC 15 MG/ML VIAL (*BKC) IV PUSH (06:06)
[2024-12-24 08:04] LABS: Hematocrit 38.7 % (42.0-52.0); Hemoglobin 12.7 g/dL (14.0-18.0); Immature Granulocyte Percent A 0.7 % (0-0.5); Lymphocytes Absolute Auto 1.79 K/mm3 (0.9-3.2); Mean Corpuscular HGB Conc 32.8 g/dl (32-36); Mean Corpuscular Hemoglobin 31.0 pg (26-34); Mean Corpuscular Volume 94.4 fl (80-100); Nucleated Red Blood Cells Absolute Auto 0.000 K/mm3 (0.0-0.012); Nucleated Red Blood Cells Perc 0.0 % (0.0-0.2); Platelet Count Result 198 k/mm3 (150-375); Red Blood Count 4.10 M/mm3 (4.6-6.20); White Blood Count 16.1 K/mm3 (4.5-10.0)
[2024-12-24 08:31] LABS: Alanine Aminotransferase 35 U/L (6-50); Albumin Level 3.4 g/dL (3.5-5.1); Alkaline Phosphatase 92 U/L (38-126); Anion Gap 7 mmol/L (4-12); Aspartate Amino Transferase 35 U/L (17-59); Bilirubin,Total 0.4 mg/dL (0.2-1.3); Blood Urea Nitrogen 16 mg/dL (9-20); Calcium 8.4 mg/dL (8.4-10.2); Carbon Dioxide 25 mmol/L (22-30); Chloride 107 mmol/L (98-107); Estimated CRCL calculation 161 ml/min; Estimated Glomerular Filt Rate > 60; Glucose 117 mg/dL (65-110); Potassium 3.9 mmol/L (3.4-5.0); Sodium 139 mmol/L (137-145); Total Protein 6.1 g/dL (6.3-8.2)
[2024-12-24] MEDS: LOSARTAN POTASSIUM 50 MG TABLET PO (08:41)
[2024-12-24] MEDS: NICOTINE (*PBKC) 21 MG PATCH 1 PATCH TRANSDERM (08:41)
[2024-12-24] MEDS: DOCUSATE SODIUM 100 MG CAPSULE PO (08:41)
--- NOTE | 2024-12-24 10:53 | WPDUROPN2 ---
Progress Note: A&P Assessment and Plan (1) Epididymo-orchitis: Code(s): N45.3 - Epididymo-orchitis Status: Acute Assessment and Plan: Patient feels much better in marked improvement in leukocytosis Comfortable with discharge today on oral levofloxacin. He should follow-up in 10-14 days Subjective Subjective Date/Time Seen: 12/24/24 10:53 Interval history: Looks, and feels, much better today Review of Systems Cardiovascular: Cardiovascular: Denies chest pain, Denies lightheadedness, Denies palpitations and Denies dyspnea Respiratory: Respiratory: Denies dyspnea Gastrointestinal: Gastrointestinal: Denies diarrhea, Denies nausea and Denies vomiting Genitourinary: Genitourinary: Denies hematuria and Denies dysuria Endocrine: Endocrine: Denies palpitations Exam Const: General: no acute distress Resp: Effort & Inspection: normal respiratory effort GI: Inspection: non-distended GI Palp: No abdominal tenderness and No Guarding due to palpation present (GI) Auscultation: normal bowel sounds : Scrotum: scrotal swelling (mild-moderate) on the left and other (moderate left epididymal induration/tenderness) Objective Data Vital Signs Vital Signs: Vital Signs - 24 hr 12/23/24 14:00 12/23/24 19:57 12/24/24 04:20 Temperature 97.8 F 99.6 F 98.2 F Pulse Rate 58 L 73 84 Respiratory Rate 18 16 18 Blood Pressure 133/69 132/78 107/64 Pulse Oximetry 98 96 93 Oxygen Delivery 12/24/24 08:00 Temperature Pulse Rate Respiratory Rate Blood Pressure Pulse Oximetry Oxygen Delivery Room Air Intake/Output Intake/Output: Intake & Output 12/21/24 12/22/24 12/23/24 12/24/24 23:59 23:59 23:59 23:59 Intake Total 1241 4026 600 Balance 1241 4026 600 Meds/Results Medications: Active Medications Generic Name Dose Route Start Last Admin Trade Name Freq PRN Reason Stop Dose Admin Acetaminophen 650 mg 12/22/24 12:48 Acetaminophen 325 Mg Tablet PO Q4H PRN Mild Pain (1-3) or Fever Hydrocodone Bitart/Acetaminophen 1 tab 12/22/24 12:48 12/24/24 06:08 Hydrocodone/Acetaminophen (*Crx) 5-325 Mg Tablet PO 1 tab Q4H PRN Administration Moderate Pain (4-6) Dextrose 12.5 gm 12/22/24 21:20 Dextrose 50% 25 Gm/50 Ml Syringe IV PUSH PRN PRN Hypoglycemia Protocol Docusate Sodium 100 mg 12/22/24 17:00 12/24/24 08:41 Docusate Sodium 100 Mg Capsule PO 100 mg BID ROSIO Administration Glucagon 1 mg 12/22/24 21:20 Glucagon For Inj 1 Mg Vial IM PRN PRN Hypoglycemia Protocol Glucose 15 gm 12/22/24 21:20 Glucose Oral Gel 15 Gm Of Glucse In 37.5 Gm Tube PO PRN PRN Hypoglycemia Protocol Hydromorphone HCl 1 mg 12/22/24 17:17 12/23/24 15:21 Hydromorphone Hcl Inj (*Crx) 1 Mg/Ml Syr IV PUSH 1 mg Q2HR PRN Administration BREAKTHROUGH PAIN Levofloxacin/Dextrose 750 mg in 150 mls @ 100 mls/hr 12/23/24 13:00 12/23/24 12:30 Levaquin 750 Mg/D5w 150 Ml IVPB 100 mls/hr Q24H ROSIO Administration Dextrose 1,000 mls @ 100 mls/hr 12/22/24 21:20 Dextrose 5% 1,000 Ml IVPB PRN PRN Hypoglycemia Protocol Insulin Aspart 2 - 5 units 12/23/24 08:00 12/24/24 08:41 Insulin Aspart (*Bkc) 100 Units/Ml SUB-Q Not Given TIDWM [facility] Protocol Insulin Aspart 1 - 2 units 12/23/24 21:00 12/23/24 21:23 Insulin Aspart (*Bkc) 100 Units/Ml SUB-Q Not Given HS [facility] Protocol Ketorolac Tromethamine 15 mg 12/22/24 18:00 12/24/24 06:06 Ketorolac 15 Mg/Ml Vial (*Bkc) IV PUSH 15 mg Q6H ROSIO Administration Losartan Potassium 50 mg 12/23/24 09:00 12/24/24 08:41 Losartan Potassium 50 Mg Tablet PO 50 mg QAM ROSIO Administration Nicotine 1 patch 12/22/24 14:25 12/24/24 08:41 Nicotine (*Pbkc) 21 Mg Patch TRANSDERM 1 patch DAILY ROSIO Administration Ondansetron HCl 4 mg 12/22/24 14:19 12/22/24 14:42 Ondansetron Inj 4 Mg/2 Ml Vial IV PUSH 4 mg Q6H PRN Administration Nausea And Vomiting Radiology Results: ITS Impressions Scrotum Ultrasound 12/22/24 11:38 Impression: Left-sided epididymoorchitis Abdomen/Pelvis CT 12/22/24 12:10 IMPRESSION: 1. No etiology identified to explain the patient's symptoms. Follow-up suggested if symptoms persist. Labs Labs: Laboratory Results - last 24 hr 12/23/24 12/23/24 12/23/24 11:44 16:37 19:58 WBC RBC Hgb Hct MCV MCH MCHC RDW Plt Count MPV Immature Gran % (Auto) Neut % (Auto) Lymph % (Auto) Johnson % (Auto) Eos % (Auto) Baso % (Auto) Lymph # (Auto) [place] # (Auto) Eos # (Auto) Baso # (Auto) Abs Immat Gran (auto) Absolute Neuts (auto) Absolute Nucleated RBC Nucleated RBC % Sodium Potassium Chloride Carbon Dioxide Anion Gap BUN Creatinine Estim Creat Clear Calc Estimated GFR Glucose POC Capillary Glucose 137 H 111 H 136 H Calcium Total Bilirubin AST ALT Alkaline Phosphatase Total Protein Albumin 12/24/24 12/24/24 07:39 07:43 WBC 16.1 H RBC 4.10 L Hgb 12.7 L Hct 38.7 L MCV 94.4 MCH 31.0 MCHC 32.8 RDW 12.9 Plt Count 198 MPV 9.9 Immature Gran % (Auto) 0.7 H Neut % (Auto) 71.6 Lymph % (Auto) 11.1 L Johnson % (Auto) 9.0 H Eos % (Auto) 7.0 H Baso % (Auto) 0.6 Lymph # (Auto) 1.79 Johnson # (Auto) 1.5 H Eos # (Auto) 1.1 H Baso # (Auto) 0.1 Abs Immat Gran (auto) 0.11 H Absolute Neuts (auto) 11.5 H Absolute Nucleated RBC 0.000 Nucleated RBC % 0.0 Sodium 139 Potassium 3.9 Chloride 107 Carbon Dioxide 25 Anion Gap 7 BUN 16 Creatinine 0.81 Estim Creat Clear Calc 161 Estimated GFR > 60 Glucose 117 H POC Capillary Glucose 133 H Calcium 8.4 Total Bilirubin 0.4 AST 35 ALT 35 Alkaline Phosphatase 92 Total Protein 6.1 L Albumin 3.4 L
--- NOTE | 2024-12-24 11:03 | P.DS_ITS ---
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 Patient has been complaining about this for the last 2 weeks. He was seen at [facility] and was treated for a urinary tract infection with antibiotics however he was told he could stop taking antibiotics causes culture was negative. He states that while he was on antibiotics he felt that his symptoms improved. However last night he had acute left testicular pain with some flank pain. Due to the pain patient presented back to the emergency room. Lab work in the ED shows leukocytosis at 29.4, sodium of 135, glucose of 150, UA is cloudy with 1+ leukocyte esterase 3-5 rbc's and 6-10 wbc's. Trichomonas and gonorrhea were negative. Scrotal ultrasound show Left-sided epididymoorchitis. CT of abdomen pelvis shows no acute findings however there is Severe hepatic steatosis. Urology was consulted and recommended inpatient IV antibiotics. Urology consulted regarding left epididymitis. Agree with presentation and diagnosis, they discussed with him regarding continued admission for least 1 more day until we see improvement in leukocytosis. Patient was agreeable to this plan. On 12/24, WBC down trended from 26.7 to 16.1. Urine culture shows no growth to date, blood cultures were drawn but continue to be pending. Low suspcion for sepsis as patient is afebrile, not tachycardic, non-tachypneic, with isolated but down trending WBC. Patient was reassessed by Urology on 12/24, comfortable with discharge at this point. Plan for continued coverage with oral levofloxacin with a follow-up with urology in 10-14 days. Patient is otherwise hemodynamically stable and can be discharged home at this time. Patient is amenable to this plan and will follow up with Urology in 2 weeks. Discharged 10 additional doses of levofloxacin. Status at Discharge Functional status at discharge: independent ambulation Overall status at discharge: patient is back to baseline Time Spent with Patient Time attestation: Total time spent providing and/or coordinating discharge services: 29 Exam Narrative: General: well appearing, appears stated age. HEENT: normocephalic, atraumatic. Mucous membranes moist. EOMI, PERRLA, bilateral sclera anicteric, no conjunctival injection. Respiratory: clear to auscultation bilaterally. No rales/rhonchi/wheezes. Cardiovascular: Regular rate and rhythm, normal S1-S2 upon auscultation. No murmurs, rubs, or clicks. Abdomen: Soft, round, no pulsatile masses, nondistended and nontender. No rebound, no guarding. No CVA tenderness, no hepatosplenomegaly. Bowel sounds present to all four quadrants. : scrotal swelling on left with left epididymal tenderness Extremities: No cyanosis, clubbing, or edema present. Pulses are palpable 2/2. Active ROM to all four extremities. Neuro: Alert and orientated x 4. PERRLA. Skin: Warm, dry, and intact, without rash, erythema, or lesion. Psych: pleasant, cooperative, normal speech, normal affect DS: Data Data Completed and Pending Labs on day of discharge: Labs from last 24 hours 12/24/24 12/24/24 12/23/24 07:43 07:39 19:58 WBC 16.1 H RBC 4.10 L Hgb 12.7 L Hct 38.7 L MCV 94.4 MCH 31.0 MCHC 32.8 RDW 12.9 Plt Count 198 MPV 9.9 Immature Gran % (Auto) 0.7 H Neut % (Auto) 71.6 Lymph % (Auto) 11.1 L [place] % (Auto) 9.0 H Eos % (Auto) 7.0 H Baso % (Auto) 0.6 Lymph # (Auto) 1.79 [place] # (Auto) 1.5 H Eos # (Auto) 1.1 H Baso # (Auto) 0.1 Abs Immat Gran (auto) 0.11 H Absolute Neuts (auto) 11.5 H Absolute Nucleated RBC 0.000 Nucleated RBC % 0.0 Sodium 139 Potassium 3.9 Chloride 107 Carbon Dioxide 25 Anion Gap 7 BUN 16 Creatinine 0.81 Estim Creat Clear Calc 161 Estimated GFR > 60 Glucose 117 H POC Capillary Glucose 133 H 136 H Calcium 8.4 Total Bilirubin 0.4 AST 35 ALT 35 Alkaline Phosphatase 92 Total Protein 6.1 L Albumin 3.4 L 12/23/24 12/23/24 16:37 11:44 WBC RBC Hgb Hct MCV MCH MCHC RDW Plt Count MPV Immature Gran % (Auto) Neut % (Auto) Lymph % (Auto) [place] % (Auto) Eos % (Auto) Baso % (Auto) Lymph # (Auto) [place] # (Auto) Eos # (Auto) Baso # (Auto) Abs Immat Gran (auto) Absolute Neuts (auto) Absolute Nucleated RBC Nucleated RBC % Sodium Potassium Chloride Carbon Dioxide Anion Gap BUN Creatinine Estim Creat Clear Calc Estimated GFR Glucose POC Capillary Glucose 111 H 137 H Calcium Total Bilirubin AST ALT Alkaline Phosphatase Total Protein Albumin Discharge Plan Discharge Attending physician on discharge: Porsha Mims Consulting providers: Max Bee; Paul Regalado Discharging Clinician: Paul Regalado Anticipated Discharge Date/Time: 12/24/24 10:56 Patient Disposition: Home Activity: no straining Diet: regular Discharge Instructions: Discharge disposition: Home Take medications as prescribed. You will be prescribed Levofloxacin 750mg to be taken daily for an additional 10 days. Monitor blood pressures Take caution while standing, rising, or moving Change positions slowly taking a break between each position change If you standing feel dizzy sit back down and take a break Encouraged to continue with yearly vaccinations Return to the emergency department if he developed sudden shortness of breath, chest pain, nausea, vomiting, upset stomach or intractable diarrhea Return to the emergency department if you develop fever greater than 101.5 Follow-up with the primary care physician within 1-2 weeks Follow up with Dr. Bee of Urology in 10-14 days Thank you for choosing [facility] for your healthcare needs Patient Instructions: Antibiotic Form, Cigarette Smoking and Your Health (GEN) Patient Language: Latvian Stand Alone Forms: General Discharge Information Follow-up/Referrals: Humble,MONTEZ Curran [Primary Care Provider, Unknown] Max Bee MD [Physician, Urology] Discharge Medications: New levofloxacin 750 mg tablet 750 mg PO DAILY Qty: 10 0RF Continued losartan 50 mg tablet 50 mg PO QAM Date of admission: 12/22/24 12:49 Primary Care Provider: Bina Andres Admitting Provider: Tarik Garrison Attending physician on admission: Tarik Garrison Condition: Stable Quality VTE Prophylaxis VTE prophylaxis: mechanical ordered
--- NOTE | 2024-12-31 08:10 | PC.NURSE ---
Blood cx show no growth.
--- NOTE | 2025-01-02 11:34 | PCCDE ---
01/02/25 DM Educator courtesy call attempted. Pt not seen in person due to admission <24 hrs. Message left including direct call back number.
== END 2024-12-24 12:25 | disposition home or self-care (01) ==
LOC: ANHED 12:49 → ANH3MEDSUR 15:04
PROVIDERS: Nurse Practitioner Gerontology; Physician Assistant; Admitting Provider Internal Medicine; Emergency Provider Emergency Medicine; PCP Physician Assistant; Visit Provider Student in an Organized Health Care Education/Training Program
DX: N45.3 Epididymo-orchitis (principal); R73.9 Hyperglycemia, unspecified; K76.0 Fatty (change of) liver, not elsewhere classified; F17.210 Nicotine dependence, cigarettes, uncomplicated; F12.90 Cannabis use, unspecified, uncomplicated
CPT/HCPCS: 36415; 74176; 76870; 80048; 80053; 81001; 82948; 83036; 85025; 87040; 87086; 87491; 87591; 93976; 96361; 96365; 96372; 96374; 96375; 96376; 99285; A9270; G0378; J0696; J1171; J1885; J1956; J2003; J2405; J7030; J7120